=== PATIENT | male | born 1960 | race Caucasian/White ===

== ENCOUNTER 2022-04-28 11:11 | Emergency (ER) | payer OTHER ==
[2022-04-28 11:18] VITALS: BP 111/59; PULSE 72; RESP 18; TEMP 98
[2022-04-28] MEDS ORDERED: ORPHENADRINE 30 MG/ML 2 ML VIAL IM STA (11:30)
[2022-04-28] MEDS ORDERED: KETOROLAC 15 MG/ML 1 ML VIAL IM STA (11:30)
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
--- NOTE | 2022-04-28 12:03 | XR ---
EXAMINATION TYPE: XR shoulder complete LT DATE OF EXAM: 04/28/2022 CLINICAL HISTORY: pain COMPARISON: NONE TECHNIQUE: Three views of the left shoulder are obtained. FINDINGS: Postoperative changes about the humeral head of rotator cuff repair. Glenohumeral joint spa servando well-preserved. No left shoulder fracture. There appears to be elevation of the distal clavicle r elative to the acromium. Widening of the AC joint. AC joint separation difficult to exclude. Correlat e clinically. IMPRESSION: 1. No evidence for fracture. 2. Possible grade 2 AC joint separation.
--- NOTE | 2022-04-28 12:05 | XR ---
EXAMINATION TYPE: XR Hip LT and AP Pelvis DATE OF EXAM: 04/28/2022 CLINICAL HISTORY: Pelvic and left hip pain. TECHNIQUE: A single AP view of the pelvis is obtained. Two views of the left hip are obtained. COMPARISON: None. FINDINGS: There is no acute fracture/dislocation evident in the pelvis. The hip and sacroiliac joints appear s ymmetric and unremarkable. The overlying soft tissue appears unremarkable.Two views of left hip show no acute fracture or dislocation. No focal lytic or sclerotic lesion seen in the proximal left femu r. The overlying soft tissue is unremarkable. IMPRESSION: There is no acute fracture or dislocation in the pelvis or left hip. The
--- NOTE | 2022-04-28 12:07 | XR ---
EXAMINATION TYPE: XR ribs LT w pa chest xray DATE OF EXAM: 04/28/2022 COMPARISON: NONE HISTORY: Pain TECHNIQUE: Single view of the chest for views of the ribs are submitted. FINDINGS: The lungs are clear. No Evidence for pneumothorax. No evidence for focal contusion. Medi astinal structures are midline. Evaluation of the ribs fails to demonstrate evidence for displaced r ib fracture or secondary sign of rib fracture. IMPRESSION: Negative study
== END 2022-04-28 12:55 | disposition home or self-care (01) ==
LOC: EC 11:11
DX: S43.102A Unspecified dislocation of left acromioclavicular joint, initial encounter (principal); Z88.0 Allergy status to penicillin; V86.99XA Unspecified occupant of other special all-terrain or other off-road motor vehicle injured in nontraffic accident, initial encounter
CPT/HCPCS: 71101; 73030; 73502; 99284; 96372; J2360; J1885

== ENCOUNTER 2022-10-21 16:55 | Emergency (ER) | payer OTHER ==
[2022-10-21 17:14] VITALS: TEMP 97.5
--- NOTE | 2022-10-21 17:37 | XR ---
EXAMINATION TYPE: XR finger RT DATE OF EXAM: 10/21/2022 5:30 PM INDICATION: Patient age:Male; 62 years old; Reason for study: laceration foreign body glass; PH[facility]. COMPARISON: None TECHNIQUE: Frontal, lateral and oblique views of the right thumb were obtained. FINDINGS: No evidence for fracture or dislocation. Marginal osteophytes are present at the distal interphalange al joint. Diffuse soft tissue swelling of the thumb. No appreciable radiopaque foreign bodies. IMPRESSION: Diffuse right thumb soft tissue swelling without evidence for radiopaque foreign body.
[2022-10-21 20:16] VITALS: BP 107/66; PULSE 87; RESP 16
[2022-10-21] MEDS ORDERED: HYDROcodone/APAP 5-325MG 1 EACH TAB PO STA (20:22)
[2022-10-21] MEDS ORDERED: LIDOCAINE 1% INJ 10MG/ML (30 ML VIAL-PF) SQ ONE (20:22)
[2022-10-21] MEDS ORDERED: DIPH,PERTUS(ACELL)TETVAC-LF 0.5 ML VIAL IM ONE (20:22)
[2022-10-21] MEDS ORDERED: BACITRACIN OINT 1 EACH PACKET TOPICAL ONE (20:23)
--- NOTE | 2022-10-21 20:26 | ED ---
General Adult HPI - General Chief complaint: Wound/Laceration Stated complaint: Thumb Lac Time Seen by Provider: 10/21/22 19:56 Source: patient, RN notes reviewed Mode of arrival: ambulatory Limitations: no limitations - History of Present Illness Initial comments: 62-year-old male presents to the emergency Department with complaints of laceration sustained to the right thumb this afternoon. States he squeezed it is of glass that had a crack in it too hard causing it to shatter. States he removed the glass prior to arrival but was concerned about possible foreign body and wound repair. Bleeding controlled. Uncertain of last tetanus shot. No loss of sensation or range of motion. Denies any other complaints or concerns at this time. - Related Data Previous Rx's Medication Instructions Recorded Cyclobenzaprine [Flexeril] 10 mg PO TID PRN #15 tab 04/28/22 HYDROcodone/APAP 7.5-325MG [[place] 1 tab PO Q4HR PRN 3 Days #18 tab 04/28/22 7.5-325] Allergies Allergy/AdvReac Type Severity Reaction Status Date / Time Penicillins Allergy Unknown Verified 04/28/22 11:19 Childhood Review of Systems ROS Statement: Those systems with pertinent positive or pertinent negative responses have been documented in the HPI. ROS Other: All systems not noted in ROS Statement are negative. Past Medical History Past Medical History: No Reported History Past Surgical History: Orthopedic Surgery Additional Past Surgical History / Comment(s): left shoulder. esophageal dilation. Past Psychological History: PTSD Smoking Status: Never smoker Past Alcohol Use History: None Reported Past Drug Use History: Marijuana General Exam Limitations: no limitations (Well-developed, well-nourished male in no acute distress.) General appearance: alert, in no apparent distress Respiratory exam: Present: normal lung sounds bilaterally. Absent: respiratory distress, wheezes, rales, rhonchi, stridor Cardiovascular Exam: Present: regular rate, normal rhythm, normal heart sounds. Absent: systolic murmur, diastolic murmur, rubs, gallop, clicks Right Elbow exam: Present: normal inspection, full ROM. Absent: tenderness, swelling Forearm Wrist exam: Present: normal inspection, full ROM. Absent: tenderness, swelling Hand Wrist exam: Present: normal inspection, full ROM, laceration (1.5 cm linear laceration proximal phalanx, palmar surface, first digit, right hand. Distal sensation intact. Range of motion intact.). Absent: tenderness, swelling Neuro motor exam: Present: thumb opposition intact, thumb IP flexion intact, thumb adduction intact Vascular: Present: normal capillary refill, radial pulse. Absent: vascular compromise, Pallo Neurological exam: Present: alert, oriented X3, CN II-XII intact Psychiatric exam: Present: anxious Course Vital Signs 10/21/22 10/21/22 17:10 20:08 Temperature 97.5 F L Pulse Rate 100 87 Respiratory 20 16 Rate Blood Pressure 144/75 107/66 O2 Sat by Pulse 96 95 Oximetry - Reevaluation(s) Reevaluation #1: 10/21/22 21:22 Wound care reviewed at length with patient and family. He will be discharged home to follow up with his PCP for wound recheck. Procedures - Laceration Laceration #1 Consent Obtained: verbal consent Indication: laceration Site: other (First digit right hand) Size (cm): 1 Description: linear Depth: simple, single layer Anesthetic Used: lidocaine 1% Anesthesia Technique: nerve block (Digital block first finger) Amount (mls): 3 Pre-repair: wound explored, irrigated extensively Type of Sutures: nylon Size of Sutures: 5-0 Number of Sutures: 3 Technique: simple, interrupted Patient Tolerated Procedure: well, no complications Additional Comments: Procedure explained and consent obtained. Digital block performed. Wound thoroughly cleansed and irrigated. 3 simple interrupted sutures were placed with good approximation. Bacitracin dressing applied. Patient is advised on wound care and follow-up instructions. Patient and family verbalized understanding. Medical Decision Making - Medical Decision Making 62-year-old male with no significant past medical history presents to the emergency department for a laceration injury to the first digit of the right hand. Upon exam, patient is well-appearing and in no acute distress, though is quite anxious. X-ray was negative. Neurovascular status is intact. Range of motion is only slightly limited by pain. Tetanus updated. Patient given a [place] for pain with improvement. Digital block was performed and wound was thoroughly irrigated. 3 simple interrupted sutures were placed with good approximation. Wound care was discussed at length with patient and family. They verbalize understanding. Encouraged to follow up with PCP for wound recheck in 72 hours. Return parameters discussed in detail. Patient verbalizes understanding and agrees with this plan. Attending: Ludmila Was pt. sent in by a medical professional or institution? @ -No Did you speak to anyone other than the patient for history? @ -No Did you review nursing and triage notes? @ -Yes, agree Were old charts reviewed? @ -No Differential Diagnosis? @ -Soft tissue injury, laceration, foreign body, this is not meant to be an exhaustive list EKG interpreted by me (3pts min.)? @ -Not applicable X-rays interpreted by me (1pt min.)? @ -X-ray of the right hand as interpreted by me shows no osseous abnormality or foreign body. CT interpreted by me (1pt min.)? @ -Not applicable U/S interpreted by me (1pt. min.)? @ -Not applicable What testing was considered but not performed? (CT, X-rays, U/S, labs)? Why? @ -None What meds were considered but not given? Why? @ -Considered oral antibiotic, the wound was not grossly contaminated therefore this was deferred. Did you discuss the management of the patient with other professionals? @ -None Did you reconcile home meds? @ -No Was smoking cessation discussed for >3mins.? @ -No Was critical care preformed (if so, how long)? @ -No Were there social determinants of health that impacted care today? How? (Homelessness, low income, unemployed, alcoholism, drug addiction, transportation, low edu. Level, literacy, decrease access to med. care, longterm, rehab)? @ -No Was there de-escalation of care discussed even if they declined? (Discuss DNR or withdrawal of care, Hospice)? @ -No What co-morbidities impacted this encounter? (DM, HTN, Smoking, COPD, CAD, Cancer, CVA, Hep., AIDS, mental health diagnosis, sleep apnea, morbid obesity)? @ -None Was patient admitted / discharged? @ -Discharged Undiagnosed new problem with uncertain prognosis? @ -None Drug Therapy requiring intensive monitoring for toxicity (Heparin, Nitro, Insulin, Cardizem)? @ -None Were any procedures done? @ -Laceration repair. See note. Diagnosis/symptom? @ -Laceration, first digit, right hand Acute, or Chronic, or Acute on Chronic? @ -Acute Uncomplicated (without systemic symptoms) or Complicated (systemic symptoms)? @ -Uncomplicated Side effects of treatment? @ -None Exacerbation, Progression, or Severe Exacerbation] @ -No Poses a threat to life or bodily function? @ -No Disposition Clinical Impression: Laceration of right thumb Disposition: HOME SELF-CARE Condition: Stable Instructions (If sedation given, give patient instructions): Care For Your Stitches (ED), Laceration (ED) Additional Instructions: Avoid contaminating wound; do not submerge hands. Gently cleanse wound twice daily with mild (dial) soap and water. Apply bacitracin, then cover with Band-Aid. Follow-up with PCP for wound recheck in 72 hours. Sutures removed in 7-10 days. Return to the emergency department with any new, worsening, or concerning symptoms. Is patient prescribed a controlled substance at d/c from ED?: No Referrals: [facility] [Primary Care Provider] - 1-2 days Time of Disposition: 21:24
== END 2022-10-21 21:37 | disposition home or self-care (01) ==
LOC: EC 16:55
DX: S61.011A Laceration without foreign body of right thumb without damage to nail, initial encounter (principal); F12.90 Cannabis use, unspecified, uncomplicated; Z88.0 Allergy status to penicillin; W25.XXXA Contact with sharp glass, initial encounter
CPT/HCPCS: 73140; 90715; 99283; 96372; J2001